=== PATIENT | male | born 1950 | race Caucasian/White ===

== ENCOUNTER 2020-03-12 22:29 | Emergency (ER) | payer MEDICARE, OTHER, SELFPAY ==
--- NOTE | 2020-03-12 23:10 | USR_ITS ---
PROCEDURE INFORMATION: Exam: US Abdomen, Limited; Right Upper Quadrant Exam date and time: 03/12/2020 11:42 PM Age: 69 years old Clinical indication: Abdominal pain; Acute; Additional info: Ruq pain, sudden onset TECHNIQUE: Imaging protocol: US abdomen. Real time ultrasound with image documentation. Limited exam focused on the right upper quadrant. COMPARISON: No relevant prior studies available. FINDINGS: Liver: Somewhat increased echogenicity of the liver may indicate fatty infiltration. No visible focal hepatic abnormality. Gallbladder: Gallbladder is upper normal/mildly prominent in size. Transverse diameter about 4 cm. Length of the gallbladder about 12 cm. Moderate amount of apparent biliary sludge within the gallbladder. No definite cholelithiasis/shadowing gallstones. No gallbladder wall thickening. Possibly a minimal amount of pericholecystic fluid, difficult to be certain. Technologist states patient was tender over the gallbladder region during scanning. Common bile duct: No biliary dilation, common duct measures 4.9 mm. Pancreas: Visible pancreas unremarkable. Much of the pancreas is obscured by bowel gas. Right kidney: Images of the right kidney show no hydronephrosis. US/US gall bladder [id number] IMPRESSION: 1. Borderline/mildly prominent gallbladder. 2. Moderate amount of biliary sludge within the gallbladder. 3. No definite cholelithiasis. 4. No biliary tree dilation. 5. Other findings discussed above.
[2020-03-12 23:11] VITALS: BP 132/87; PULSE 87; RESP 16; TEMP 36.9; O2SAT 99; BMI 29.2
--- NOTE | 2020-03-12 23:12 | W.ED.ABDPA2 ---
HPI - Abdominal Pain General: Chief Complaint: Nausea/Vomiting/Diarrhea Stated Complaint: ABDOMINAL PAIN Time Seen by Provider: 03/12/20 23:07 History of Present Illness: HPI narrative: Complains of severe onset abdominal pain earlier this evening. He had been fine up until eating and then about an hour after eating some fried food he developed severe upper right quadrant abdominal pain. Has been vomiting. Denies any shortness of breath chest pain or chest pressure. Carole history gallbladder problems. MD elicited complaint: abdominal pain Pertinent past history: other (Hypertension) Onset (ago): hour(s) Pain Consistency: constant Location: RUQ Severity: severe Pain scale (0-10): 8 Quality: aching Radiation: RUQ and epigastric Exacerbating factors: nothing Relieving factors: nothing Associated Symptoms: Reports belching and vomiting; Denies chills and fever(s) Review of Systems Const: Denies: fever(s), chills or body aches Eyes: Denies: change in vision or blurry vision ENMT: Denies: throat pain or nasal congestion Card: Denies: chest pain or dyspnea on exertion Resp: Denies: dyspnea, productive cough or non-productive cough GI: Reports: abdominal pain, vomiting and belching : Denies: difficulty urinating Musc: Denies: extremity pain Skin/Breast: Denies: rash Neuro: Denies: headache(s) Psych: Denies: anxiety or depression Richie/Lymph: Denies: easy bruising PFSH ED PFSH: Family History (Updated 03/17/20 @ 15:37 by Kayla Lam RN) Denies family history of Anesthesia complication Bleeding disorder Social History (Updated 03/17/20 @ 15:37 by Kayla Lam RN) Smoking and tobacco status: never smoked Physical Exam Const: COMMON NORMALS: no acute distress, average body habitus and patient oriented x3 HENMT: COMMON NORMALS: normocephalic HEAD & SCALP: normal to inspection and normocephalic FACE & SINUS: normal facial exam Eye: COMMON NORMALS: conjunctivae normal GENERAL EYE: appearance normal, both eyes and all related structures CONJUNCTIVA: Yes conjunctivae normal Neck/C-Spine: COMMON NORMALS: no JVD Chest: COMMONS NORMALS: normal inspection of the chest Resp: COMMON NORMALS: normal respiratory effort and clear to auscultation bilaterally AUSCULTATION: clear to auscultation bilaterally Cardio: COMMON NORMALS: no JVD, regular rate and regular rhythm RATE: regular rate RHYTHM: regular rhythm GI: COMMON NORMALS: Normal to inspection, nondistended, normoactive bowel sounds present PALPATION: Yes Tenderness to palpation present (GI) Details: RUQ Extremity: COMMON NORMALS: normal to inspection and full ROM Neuro: COMMON NORMALS: patient oriented x3 Course Vital Signs: Vital signs: Vital Signs Temperature 98.5 F 03/12/20 23:11 Pulse Rate 86 03/13/20 02:38 Respiratory Rate 16 03/13/20 01:44 Blood Pressure 152/82 03/13/20 02:38 Pulse Oximetry 93 03/13/20 02:38 MDM - Abdominal Pain MDM Narrative: Medical decision making narrative: Discussed all findings with Dr. Chou. Patient will make a choice whether he wants follow-up Dr. Barrientos Lab Data: Labs: Lab Results 03/12/20 03/12/20 03/12/20 Range/Units 23:33 23:33 23:33 WBC 10.3 H (4.0-10.0) 10^3/ uL RBC 4.97 (4.1-5.3) 10^6/u L Hgb 15.6 (11.7-16.6) g/dL Hct 46.4 (42.0-52.0) % MCV 93.4 (80-94) fL MCH 31.4 (28.0-34.0) pg MCHC 33.6 (30.0-36.0) g/dL RDW 12.1 (12.1-15.1) % Plt Count 225 (130-400) 10^3/c mm MPV 9.6 (7.4-10.4) fL Neut % (Auto) 61.0 % Lymph % (Auto) 27.5 % [place] % (Auto) 7.4 % Eos % (Auto) 2.4 % Baso % (Auto) 0.9 % Neut # (Auto) 6.29 (1.8-7.7) 10^3/u L Lymph # (Auto) 2.8 (0.8-4.8) 10^3/u L [place] # (Auto) 0.8 (0.2-0.9) 10^3/u L Eos # (Auto) 0.3 (0.0-0.8) 10^3/u L Baso # (Auto) 0.1 (0.0-0.1) 10^3/u L Nucleated RBC % (a uto) 0 % Nucleated RBCs # 0.0 /100WBC Sodium Cancelled 139 Potassium Cancelled 4.3 Chloride Cancelled 101 Carbon Dioxide Cancelled 28 Anion Gap Cancelled 14.3 BUN Cancelled 19 Creatinine Cancelled 1.1 GFR Calculation Cancelled 66.8 L Glucose Cancelled 175 H Calculated Osmolal ity Cancelled 295 Calcium Cancelled 9.2 Total Bilirubin Cancelled 0.3 AST Cancelled 29 ALT Cancelled 45 H Alkaline Phosphata se Cancelled 65 Total Protein Cancelled 7.2 Albumin Cancelled 4.6 Globulin Cancelled 2.6 Lipase Cancelled 31 Urine Color (Yellow) Urine Appearance (CLEAR) Urine pH (5-7) Ur Specific Gravit y (1.005-1.030) Urine Protein (Negative) Urine Glucose (UA) (Normal) Urine Ketones (Negative) Urine Blood (Negative) Urine Nitrate (Negative) Urine Bilirubin (Negative) Urine Urobilinogen (Negative) mg/dL Ur Leukocyte Marce ase (Negative) 03/13/20 Range/Units 01:25 WBC (4.0-10.0) 10^3/ uL RBC (4.1-5.3) 10^6/u L Hgb (11.7-16.6) g/dL Hct (42.0-52.0) % MCV (80-94) fL MCH (28.0-34.0) pg MCHC (30.0-36.0) g/dL RDW (12.1-15.1) % Plt Count (130-400) 10^3/c mm MPV (7.4-10.4) fL Neut % (Auto) % Lymph % (Auto) % [place] % (Auto) % Eos % (Auto) % Baso % (Auto) % Neut # (Auto) (1.8-7.7) 10^3/u L Lymph # (Auto) (0.8-4.8) 10^3/u L [place] # (Auto) (0.2-0.9) 10^3/u L Eos # (Auto) (0.0-0.8) 10^3/u L Baso # (Auto) (0.0-0.1) 10^3/u L Nucleated RBC % (a uto) % Nucleated RBCs # /100WBC Sodium Potassium Chloride Carbon Dioxide Anion Gap BUN Creatinine GFR Calculation Glucose Calculated Osmolal ity Calcium Total Bilirubin AST ALT Alkaline Phosphata se Total Protein Albumin Globulin Lipase Urine Color Yellow (Yellow) Urine Appearance Clear (CLEAR) Urine pH 5 (5-7) Ur Specific Gravit y 1.025 (1.005-1.030) Urine Protein Neg (Negative) Urine Glucose (UA) Norm (Normal) Urine Ketones Negative (Negative) Urine Blood Neg (Negative) Urine Nitrate Negative (Negative) Urine Bilirubin Neg (Negative) Urine Urobilinogen Norm (Negative) mg/dL Ur Leukocyte Marce ase Negative (Negative) Discharge Plan Discharge Patient Disposition: Home Clinical Impression: Abdominal pain Qualifiers: Abdominal location: right upper quadrant Qualified Code(s): R10.11 - Right upper quadrant pain Condition: Stable Prescriptions: No Action oxycodone-acetaminophen 5-325 mg tablet 1 tab PO Q6H PRN (Reason: pain) Qty: 14 RF: 0 dicyclomine 20 mg tablet 20 mg PO TID Qty: 20 RF: 0 ondansetron HCl 4 mg tablet 4 mg PO Q8H PRN (Reason: nausea and vomiting) Qty: 10 RF: 0 Discharge Orders: Discharge Order (Routine); Ordered 03/13/20 Ordered By: Claude Ralph Referrals: Amando Harry DO [Family Provider] - Discharge Diet: Advance as tolerated and Low Fat Discharge Activity: Increase activity as tolerated Patient Instructions: Abdominal Pain (ED) Activity Restrictions/Additional Instructions: Follow-up with your family medical doctor/provider. Low-fat diet. Discussed with your family medical provider if you would like to have an appointment with the surgeon to discuss gallbladder. Would recommend doing a laxative or some magnesium citrate to help clean the bowels out. Increase fiber in diet. Discharge Date/Time: 03/13/20 02:40 Coding Level of Care Code ED Data Center Architect for Chg Fwd Exam Comprehensive
[2020-03-12 23:29] VITALS: BP 181/96; PULSE 85; O2SAT 97
[2020-03-12 23:35] VITALS: RESP 16
[2020-03-12] MEDS: morphine 4 mg/mL SDV 1 mL IVP (23:35)
[2020-03-12] MEDS: ondansetron 2 mg/ML SDV 2 mL 4 MG IVP (23:39)
[2020-03-12] MEDS: sodium chloride 0.9% 1,000 ML 999 ML IV (23:43)
[2020-03-12 23:44] LABS: Basophils # 0.1 10^3/uL (0.0-0.1); Basophils % 0.9 %; Eosinophils # 0.3 10^3/uL (0.0-0.8); Eosinophils % 2.4 %; Hematocrit 46.4 % (42.0-52.0); Hemoglobin 15.6 g/dL (11.7-16.6); Lymphocytes # 2.8 10^3/uL (0.8-4.8); Lymphocytes % 27.5 %; Mean Corpuscular HGB Conc 33.6 g/dL (30.0-36.0); Mean Corpuscular Hemoglobin 31.4 pg (28.0-34.0); Mean Corpuscular Volume 93.4 fL (80-94); Mean Platelet Volume 9.6 fL (7.4-10.4); Monocytes # 0.8 10^3/uL (0.2-0.9); Monocytes % 7.4 %; Neutrophils # 6.29 10^3/uL (1.8-7.7); Nucleated Red Blood Cells % 0 %; Platelet Count 225 10^3/cmm (130-400); Red Blood Count 4.97 10^6/uL (4.1-5.3); Red Cell Distribution Width 12.1 % (12.1-15.1); White Blood Count 10.3 10^3/uL (4.0-10.0)
[2020-03-13 00:21] VITALS: RESP 18
[2020-03-13] MEDS: morphine 4 mg/mL SDV 1 mL IVP (00:21)
[2020-03-13 00:51] LABS: Alanine Aminotransferase 45 U/L (0-41); Albumin Level 4.6 g/dL (3.5-5.2); Alkaline Phosphatase 65 IU/L (40-130); Anion Gap 14.3 (5-19); Aspartate Amino Transferase 29 U/L (0-40); Blood Urea Nitrogen 19 mg/dL (8-23); Calcium 9.2 mg/dL (8.5-10.5); Carbon Dioxide 28 mmol/L (22-29); Chloride 101 mmol/L (98-107); Globulin 2.6 g/dL (1.3-4.6); Glomerular Filtration Rate 66.8 mL/min (90-130); Glucose 175 mg/dL (65-115); Lipase 31 U/L (13-60); Osmolality Calculated 295 mOsm/kg (285-295); Potassium 4.3 mmol/L (3.5-5.1); Sodium 139 mmol/L (136-145); Total Bilirubin 0.3 mg/dL (0.15-1.2); Total Protein 7.2 g/dL (6.6-8.7)
--- NOTE | 2020-03-13 00:55 | XR_ITS ---
WS: [id number] KUB, portable supine, 03/13/2020 Clinical Data: abd pain Comparison: None. Findings: No abnormal intraabdominal masses or calcifications are seen. There is no dilatated small bowel or ev idence of obstruction. The small bowel loops show a moderate amount of air without dilatation. Moderate fecal material is pr esent. XR/XR KUB portable [id number] Impression: Moderate generalized ileus.
--- NOTE | 2020-03-13 01:07 | CTR_ITS ---
PROCEDURE INFORMATION: Exam: CT Abdomen And Pelvis With Contrast Exam date and time: 03/13/2020 1:13 AM Age: 69 years old Clinical indication: Abdominal pain; Generalized; Prior surgery; Surgery type: Hernia; Additional info: Ruq pain TECHNIQUE: Imaging protocol: Computed tomography of the abdomen and pelvis with intravenous contrast. Radiation optimization: All CT scans at this facility use at least one of these dose optimization techniques: automated exposure control; mA and/or kV adjustment per patient size (includes targeted exams where dose is matched to clinical indication); or iterative reconstruction. Contrast material: OMNI 300; Contrast volume: 95 ml; Contrast route: INTRAVENOUS (IV); COMPARISON: US gall bladder [id number] 03/12/2020 11:35 PM RADIATION DOSE METRICS: Total DLP (mGy-cm): 1144.93 FINDINGS: Lungs: The lung bases are clear. Mediastinal space: Small hiatal hernia. Liver: There is fatty infiltration of the liver. The liver appears somewhat enlarged, with right lobe length of 21-22 vessel to cm. No definite/significant focal hepatic abnormality. Gallbladder and bile ducts: The gallbladder appears upper normal/mildly prominent in size, transverse diameter up to about 3.9 cm. No visible gallstones by CT. No definite pericholecystic fluid or inflammation. Borderline/mild extra hepatic biliary tree prominence, with common duct measuring up to about 6 mm. No significant intrahepatic biliary dilation. No visible common duct stone by CT. Significance uncertain. Correlation with laboratory/bilirubin levels may be helpful to determine if there is any significant biliary obstruction. Pancreas: Unremarkable. Spleen: Unremarkable. Adrenals: Unremarkable. Kidneys and ureters: Couple of likely benign subcentimeter cysts in the kidneys, too small to accurately characterize by CT. These are peripelvic in location on left. Small right lower pole intrarenal calculus. No hydronephrosis of either kidney. No visible ureteral calculus. No perinephric fluid. Stomach and bowel: There is diverticulosis of the colon, without CT evidence of diverticulitis. Appendix: The appendix is visualized and appears normal. Intraperitoneal space: No free air, ascites, or bowel distention. Vasculature: Moderate atherosclerotic disease in the lower abdominal aorta and proximal iliac arteries. Some ectasia of the abdominal aorta, with maximum AP diameter 2.3 cm. Lymph nodes: No retroperitoneal adenopathy. Urinary bladder: Mild diffuse urinary bladder wall thickening. This may be related to the prostate enlargement. While nonspecific, this could also indicate evidence for cystitis. Please correlate clinically. Reproductive: Prostate enlargement with transverse diameter of 5.8 cm. Correlation with PSA levels may be useful to help exclude prostate malignancy. Bones/joints: No significant acute finding. Soft tissues: No significant acute finding. CT/CT abdomen pelvis w con* [id number] IMPRESSION: 1. Gallbladder is upper normal/mildly prominent in size, no visible gallstones by CT. 2. Borderline/mild extra hepatic biliary tree prominence, see above discussion. 3. Normal appendix. 4. Small right intrarenal calculus. No hydronephrosis or visible ureteral calculus. 5. Prostate enlargement and mild urinary bladder wall thickening, see above. 6. Other findings discussed above. COMMENTS: Consistent with the [employer]'s Incidental Findings Committee white paper (J Am Sae Radiol 2018): Any incidental renal lesion less than 1 cm or classified as too small to characterize, or any incidental cystic renal lesion characterized as simple-appearing, is likely benign. No follow-up imaging is recommended for these lesions per consensus recommendations based on imaging criteria. Radiation Dose CTDIVOL = (mGy): DLP = 1144.93 (mGy-cm)
[2020-03-13] MEDS: iohexol 300 mg/mL 100 mL Btl IV (01:28)
[2020-03-13 01:38] VITALS: RESP 16
[2020-03-13] MEDS: meperidine 50 mg/mL INJ IVP (01:38)
[2020-03-13 01:39] LABS: Add Urine Microscopic? NO
[2020-03-13 01:44] VITALS: BP 167/80; PULSE 88; RESP 16; O2SAT 97
[2020-03-13 01:55] LABS: Bilirubin Urine Neg (Negative); Blood Urine Neg (Negative); Glucose Urine UA Norm (Normal); Ketones Urine Negative (Negative); Leukocyte Esterase Urine Negative (Negative); Nitrate Urine Negative (Negative); Protein Urine Neg (Negative); Specific Gravity, Urine 1.025 (1.005-1.030); Urine Appearance Clear (CLEAR); Urine Color Yellow (Yellow); Urobilinogen Urine Norm (Negative); pH Urine 5 (5-7)
[2020-03-13] MEDS: HYDROcodone-acetaminophen 5-325 mg Tablet 2 TAB PO (02:35)
[2020-03-13 02:38] VITALS: BP 152/82; PULSE 86; O2SAT 93
== END 2020-03-13 02:40 | disposition home or self-care (01) ==
PROVIDERS: Emergency Medicine; Emergency Provider Nurse Practitioner Family; Family Provider Family Medicine
DX: R10.11 Right upper quadrant pain (principal)
CPT/HCPCS: 12345; 74018; 74177; 76705; 80053; 81003; 83690; 85025; 96361; 96374; 96375; 96376; 99283; J2175; J2270; J2405; J7030; Q9967

== ENCOUNTER 2020-03-14 16:07 | Emergency (ER) | payer MEDICARE, OTHER, SELFPAY ==
[2020-03-14] VITALS (7 sets, daily range): BP systolic 124–215; BP diastolic 60–110; PULSE 74–100; RESP 16–20; TEMP 36.5–36.7; O2SAT 95–97; BMI 29.9
--- NOTE | 2020-03-14 18:26 | ED_ITS ---
HPI - Abdominal Pain General: Chief Complaint: Abdominal Pain Stated Complaint: lower abdominal pain Time Seen by Provider: 03/14/20 18:20 History of Present Illness: HPI narrative: 69-year-old male comes in with abdominal pain. Patient was diagnosed with gallbladder disease 2 days ago and was prescribed 2 hydrocodone tablets at that time. Patient continues to have some abdominal pain. He has been able unable to control at home. Patient appears in mild to moderate pain. Patient appears well otherwise. Review of Systems General: Reports: 10 or more systems reviewed and unremarkable except in HPI and below GI: Reports: abdominal pain Physical Exam Const: COMMON NORMALS: no acute distress and patient oriented x3 GENERAL APPEARANCE: cooperative HENMT: COMMON NORMALS: normocephalic and Normal external nose present HEAD & SCALP: normal to inspection and normocephalic NOSE: Normal external nose present MOUTH: Normal oral and palatal mucosa present THROAT: posterior oropharynx normal Eye: GENERAL EYE: appearance normal, both eyes and all related structures Neck/C-Spine: COMMON NORMALS: full ROM Lymph: LYMPHATIC: no lymphadenopathy noted Chest: COMMONS NORMALS: normal inspection of the chest Resp: COMMON NORMALS: normal respiratory effort EFFORT & INSPECTION: Yes able to speak in complete sentences Cardio: COMMON NORMALS: regular rate and regular rhythm RATE: regular rate RHYTHM: regular rhythm GI: COMMON NORMALS: Soft to palpation PALPATION: Yes Soft to palpation and Yes Tenderness to palpation present (GI) : COMMON NORMALS: Yes no CVA tenderness BLADDER/KIDNEY EXAM: Yes no CVA tenderness Back/Pelvis: COMMON NORMALS: no CVA tenderness and thoracic and lumbar spine normal to inspection Extremity: COMMON NORMALS: normal to inspection Neuro: COMMON NORMALS: patient oriented x3 and moves all extremities Psych: COMMON NORMALS: mental status grossly normal and cooperative Skin: COMMON NORMALS: no rashes or lesions noted GENERAL SKIN EXAM: no rashes or lesions noted Course ED course: 2152, Dr. Stewart consulted for oxycodone and acetaminophen prescription. He agreed to plan. Vital Signs: Vital signs: Vital Signs Temperature 97.7 F 03/14/20 16:27 Pulse Rate 74 03/14/20 21:00 Respiratory Rate 16 03/14/20 21:00 Blood Pressure 124/60 03/14/20 21:00 Pulse Oximetry 96 03/14/20 21:00 MDM - Abdominal Pain MDM Narrative: Medical decision making narrative: Patient comes in for exacerbation of gallbladder pain. Patient reports right upper quadrant pain. Patient was diagnosed with gallbladder sludge 2 days ago. Patient does not think he could make it through the weekend and came in for further evaluation. On exam patient appears mildly unwell. Patient appears in moderate to severe pain. Patient was given 50 mg of Toradol IV 1 mg of Dilaudid and 4 mg of Zofran. Patient had good relief of pain at that time he was able to tolerate ultrasound and further evaluation. Ultrasound noted no significant change from previous exam. Differential diagnosis included but not limited to cholecystitis, cholelithiasis, gallbladder colic. No indication for gallbladder obstruction at this time and patient had total relief of pain. Recommended trial of dicyclomine, Percocet, and Zofran for control of gallbladder colic. Patient agreed to trial and will see surgeon on Tuesday as he has scheduled. We will place case management to ensure surgical follow-up. Encourage light diet and return to the ER for worsening symptoms or new concerns. Lab Data: Labs: Lab Results 03/14/20 03/14/20 03/14/20 Range/Units 18:43 18:43 18:48 WBC 12.4 H (4.0-10.0) 10^3/ uL RBC 5.18 (4.1-5.3) 10^6/u L Hgb 16.3 (11.7-16.6) g/dL Hct 48.8 (42.0-52.0) % MCV 94.2 H (80-94) fL MCH 31.5 (28.0-34.0) pg MCHC 33.4 (30.0-36.0) g/dL RDW 12.2 (12.1-15.1) % Plt Count 232 (130-400) 10^3/c mm MPV 9.3 (7.4-10.4) fL Neut % (Auto) 81.5 % Lymph % (Auto) 8.9 % [place] % (Auto) 8.9 % Eos % (Auto) 0.2 % Baso % (Auto) 0.2 % Neut # (Auto) 10.12 H (1.8-7.7) 10^3/u L Lymph # (Auto) 1.1 (0.8-4.8) 10^3/u L [place] # (Auto) 1.1 H (0.2-0.9) 10^3/u L Eos # (Auto) 0.0 (0.0-0.8) 10^3/u L Baso # (Auto) 0.0 (0.0-0.1) 10^3/u L Nucleated RBC % (a uto) 0 % Nucleated RBCs # 0.0 /100WBC Sodium 134 L (136-145) mmol/L Potassium 4.2 (3.5-5.1) mmol/L Chloride 93 L (98-107) mmol/L Carbon Dioxide 30 H (22-29) mmol/L Anion Gap 15.2 (5-19) BUN 11 (8-23) mg/dL Creatinine 1.0 (0.7-1.2) mg/dL GFR Calculation 74.5 L (90-130) mL/min Glucose 144 H (65-115) mg/dL Calculated Osmolal ity 280 L (285-295) mOsm/k g Calcium 9.5 (8.5-10.5) mg/dL Total Bilirubin 0.9 (0.15-1.2) mg/dL AST 202 H (0-40) U/L ALT 468 H (0-41) U/L Alkaline Phosphata se 122 (40-130) IU/L Total Protein 8.1 (6.6-8.7) g/dL Albumin 4.8 (3.5-5.2) g/dL Globulin 3.3 (1.3-4.6) g/dL Lipase 21 (13-60) U/L Urine Color Yellow (Yellow) Urine Appearance Clear (CLEAR) Urine pH 7 (5-7) Ur Specific Gravit y 1.015 (1.005-1.030) Urine Protein Neg (Negative) Urine Glucose (UA) Norm (Normal) Urine Ketones Negative (Negative) Urine Blood Neg (Negative) Urine Nitrate Negative (Negative) Urine Bilirubin Neg (Negative) Urine Urobilinogen Norm (Negative) mg/dL Ur Leukocyte Marce ase Negative (Negative) Discharge Plan Discharge Patient Disposition: Home Clinical Impression: Gallbladder colic Condition: Stable Prescriptions: New oxycodone-acetaminophen 5-325 mg tablet 1 tab PO Q6H PRN (Reason: pain) Qty: 14 RF: 0 dicyclomine 20 mg tablet 20 mg PO TID Qty: 20 RF: 0 ondansetron HCl 4 mg tablet 4 mg PO Q8H PRN (Reason: nausea and vomiting) Qty: 10 RF: 0 Discharge Orders: Discharge Order (Routine); Ordered 03/14/20 Ordered By: Chris Pearson Discharge Diet: Usual diet Discharge Activity: Increase activity as tolerated Patient Instructions: Abdominal Pain (ED) Activity Restrictions/Additional Instructions: Drink plenty of water. Take medications as directed for pain and nausea. Use dicyclomine to control gallbladder spasms. Avoid greasy or fatty foods. Follow-up with surgeon on Tuesday. Return to the emergency department for fever, or uncontrolled pain. Coding Level of Care Code ED Masonry Contractor Administrator for Chg Fwd Exam Comprehensive
[2020-03-14 19:00] LABS: Add Urine Microscopic? NO
[2020-03-14 19:04] LABS: Bilirubin Urine Neg (Negative); Blood Urine Neg (Negative); Glucose Urine UA Norm (Normal); Ketones Urine Negative (Negative); Leukocyte Esterase Urine Negative (Negative); Nitrate Urine Negative (Negative); Protein Urine Neg (Negative); Specific Gravity, Urine 1.015 (1.005-1.030); Urine Appearance Clear (CLEAR); Urine Color Yellow (Yellow); Urobilinogen Urine Norm (Negative); pH Urine 7 (5-7)
[2020-03-14 19:07] LABS: Basophils % 0.2 %; Eosinophils % 0.2 %; Hematocrit 48.8 % (42.0-52.0); Hemoglobin 16.3 g/dL (11.7-16.6); Lymphocytes # 1.1 10^3/uL (0.8-4.8); Lymphocytes % 8.9 %; Mean Corpuscular HGB Conc 33.4 g/dL (30.0-36.0); Mean Corpuscular Hemoglobin 31.5 pg (28.0-34.0); Mean Corpuscular Volume 94.2 fL (80-94); Mean Platelet Volume 9.3 fL (7.4-10.4); Monocytes # 1.1 10^3/uL (0.2-0.9); Monocytes % 8.9 %; Neutrophils # 10.12 10^3/uL (1.8-7.7); Neutrophils % 81.5 %; Nucleated Red Blood Cells % 0 %; Platelet Count 232 10^3/cmm (130-400); Red Blood Count 5.18 10^6/uL (4.1-5.3); Red Cell Distribution Width 12.2 % (12.1-15.1); White Blood Count 12.4 10^3/uL (4.0-10.0)
[2020-03-14] MEDS: sodium chloride 0.9% 1,000 ML 999 ML IV (19:12)
[2020-03-14] MEDS: ondansetron 2 mg/ML SDV 2 mL 4 MG IVP (19:13)
[2020-03-14] MEDS: ketorolac 30 mg/mL INJ IVP (19:15)
[2020-03-14] MEDS: HYDROmorphone 1 mg/mL INJ 1 mL IVP (19:18)
[2020-03-14 19:29] LABS: Alanine Aminotransferase 468 U/L (0-41); Albumin Level 4.8 g/dL (3.5-5.2); Alkaline Phosphatase 122 IU/L (40-130); Anion Gap 15.2 (5-19); Aspartate Amino Transferase 202 U/L (0-40); Blood Urea Nitrogen 11 mg/dL (8-23); Calcium 9.5 mg/dL (8.5-10.5); Carbon Dioxide 30 mmol/L (22-29); Chloride 93 mmol/L (98-107); Globulin 3.3 g/dL (1.3-4.6); Glomerular Filtration Rate 74.5 mL/min (90-130); Glucose 144 mg/dL (65-115); Lipase 21 U/L (13-60); Osmolality Calculated 280 mOsm/kg (285-295); Potassium 4.2 mmol/L (3.5-5.1); Sodium 134 mmol/L (136-145); Total Bilirubin 0.9 mg/dL (0.15-1.2); Total Protein 8.1 g/dL (6.6-8.7)
--- NOTE | 2020-03-14 20:03 | USR_ITS ---
PROCEDURE INFORMATION: Exam: US Abdomen, Limited; Right Upper Quadrant Exam date and time: 03/14/2020 8:04 PM Age: 69 years old Clinical indication: Abdominal pain; Prior surgery; Surgery type: Hernias; Additional info: Increased abd pain TECHNIQUE: Imaging protocol: US abdomen. Real time ultrasound with image documentation. Limited exam focused on the right upper quadrant. COMPARISON: US gall bladder [id number] 03/12/2020 11:35 PM FINDINGS: Limitations: The study is limited by patient body habitus. Liver: Hepatomegaly noted. Liver measures 19 cm in length. Hepatic echotexture is coarsened, consistent with hepatic steatosis. There is focal sparing seen in the area of the gallbladder fossa. Gallbladder: No gallstones are demonstrated in the gallbladder. Gallbladder wall is thickened, measuring 4.5 mm. This may be a sympathetic reaction related to adjacent hepatic pathology. No definite pericholecystic fluid. Common bile duct: No biliary dilatation. The common duct measures 5.8 mm in diameter. Pancreas: Visualized pancreas is unremarkable. Right kidney: Right kidney measures 11.5 cm in length. Click normal kidney US/US gall bladder [id number] IMPRESSION: 1. The study is limited by patient body habitus. 2. Hepatomegaly and hepatic steatosis. 3. No gallstones are demonstrated in the gallbladder. Gallbladder wall is thickened, measuring 4.5 mm. This may be a sympathetic reaction related to adjacent hepatic pathology. No definite pericholecystic fluid demonstrated.
[2020-03-14] MEDS: dicyclomine 10 mg Capsule 20 MG PO (21:49)
[2020-03-14] MEDS: oxyCODONE-APAP 10-325 mg Tablet 1 TAB PO (21:50)
--- NOTE | 2020-03-17 12:28 | DCPLANNER ---
maintenance department manager had message to schedule a follow up appointment for patient with [facility]. maintenance department manager called [facility], spoke with Victoria. A follow up appointment is scheduled for Tuesday, March 17, 2020 at 3:15 with . maintenance department manager will confirm that patient attended appointment.
--- NOTE | 2020-03-20 15:20 | DCPLANNER ---
Patient had a follow up appointment scheduled for 03.17.20 with [facility] - patient did attend appointment.
== END 2020-03-14 22:03 | disposition home or self-care (01) ==
PROVIDERS: Emergency Medicine; Emergency Provider Nurse Practitioner Family
DX: K80.20 Calculus of gallbladder without cholecystitis without obstruction (principal)
CPT/HCPCS: 12345; 36415; 76705; 80053; 81003; 83690; 85025; 96361; 96374; 96375; 99283; J1170; J1885; J2405; J7030

== ENCOUNTER 2020-03-27 07:59 | Outpatient (CLI) | payer MEDICARE, OTHER, SELFPAY ==
--- NOTE | 2020-03-27 08:00 | NM_ITS ---
WS: [id number] NUCLEAR MEDICINE HIDA SCAN CLINICAL INFORMATION: GALLBLADDER COLIC TECHNIQUE: Following intravenous administration of 8.0 mCi of technetium 99m mebrofenin, images of th e abdomen were obtained over the course of 120 minutes. COMPARISON: None. FINDINGS: Normal hepatic uptake at 5 minutes. Hepatomegaly. Normal hepatic excretion. Gallbladder is not visual ized by 2 hours. Normal common bile duct and small bowel activity. No evidence of choledocholithiasis . Ejection fraction was not performed due to nonvisualization of the gallbladder. NM/NM hepatobiliary wo phar [id number] IMPRESSION: 1. Nonvisualization of the gallbladder by 120 minutes suspicious for cholecyst itis with cystic duct obstruction 2. Common bile duct activity and small bowel activity visualized. No evidence of choledocholithiasis.
--- NOTE | 2020-03-27 11:00 | MR_ITS ---
WS: [id number] MRI/MRCP OF THE ABDOMEN WITHOUT GADOLINIUM ENHANCEMENT TECHNIQUE: Thin and thick slab MRCP, Axial T2, Coronal MRCP, Axial Dual Echo, and Axial 2-D Fiesta imaging was obtained. Coronal 2-D Fiesta imaging. CLINICAL INFORMATION: GALLBLADDER COLIC COMPARISON: Ultrasound March 14, [address]. Recent [address] abdomen pelvis and HIDA scan FINDINGS: Diffuse gallbladder wall thickening measuring approximately 5 mm with cholelithiasis at the gallbladd er neck. Narrowing of the adjacent cystic duct. Gallbladder calculus measures approximately 1.4 cm. C ommon bile duct is normal. No evidence of choledocholithiasis. Common bile duct tapers to the pancreatic head.Hepatomegaly. Diffuse infiltration of the liver. Norm al pancreatic duct. No evidence of pancreatic head mass. Normal caliber upper abdominal aorta. Adrenal glands are normal. Small right renal cysts. No hydronep hrosis. Normal spleen. Normal portal vein and splenic vein. MR/MR MRCP [id number] Impression: 1. Diffuse gallbladder wall thickening with gallbladder wall edema suspicious for acute cholecystitis. 2. Gallbladder calculus at the gallbladder neck with narrowing of the adjacent cystic duct at the level of the gallbladder. 3. Normal common bile duct. No evidence of choledocholithiasis. 4. Normal pancreatic duct duct. No evidence of pancreatic mass. 5. Hepatomegaly with diffuse fatty infiltration of the liver.
== END 2020-03-27 08:00 | disposition home or self-care (01) ==
LOC: RAD 08:04
PROVIDERS: PCP Family Medicine; Visit Provider Surgery
DX: K80.20 Calculus of gallbladder without cholecystitis without obstruction (principal); R16.0 Hepatomegaly, not elsewhere classified; K76.0 Fatty (change of) liver, not elsewhere classified
CPT/HCPCS: 74181; 78226; A9537

== ENCOUNTER → 2020-04-16 11:03 | Outpatient (BNVA) | payer MEDICARE, OTHER, SELFPAY | PROVIDERS: PCP Family Medicine; Visit Provider Surgery | DX: K80.20 Calculus of gallbladder without cholecystitis without obstruction (principal); Z20.828 Contact with and (suspected) exposure to other viral communicable diseases | CPT/HCPCS: 87635 ==

== ENCOUNTER 2020-04-21 06:18 | Day surgery (SDC) | payer MEDICARE, OTHER, SELFPAY ==
[2020-04-16 13:05] VITALS: BMI 30.1
[2020-04-21] VITALS (11 sets, daily range): BP systolic 102–158; BP diastolic 64–97; PULSE 74–95; RESP 10–24; TEMP 36.1–36.3; O2SAT 93–98
--- NOTE | 2020-04-21 06:24 | W.PM.OPSUD ---
Surgery/Procedure H&P Update DATE OF PROCEDURE: April 21, 2020 DATE H&P PERFORMED: 04/10/20 H&P UPDATE INFORMATION: I have reviewed H&P completed within last 30 days, I have examined patient prior to procedure and No changes to prior documentation (patient reports he dropped his weight down to 200 pounds from 213 per his home scale.) PREOP DIAGNOSIS: Symptomatic cholelithiasis PRIMARY INDICATION FOR PROCEDURE: The same PLANNED PROCEDURE: Operation Date: 04/21/20 07:00 Proposed Procedures p Laparoscopic Cholecystectomy 50579 k80.20(Not Applicable) - Bright Barrientos MD
[2020-04-21] MEDS: sodium chloride 0.9% 1,000 ML 30 ML IV (06:50)
--- NOTE | 2020-04-21 06:59 | ANES.PREANE2 ---
Pre-Anesthetic Assessment Pre-Anesthetic Assessment: Height/Weight: Height 1.8 m Weight 95.254 kg Temp Pulse Resp BP Pulse Ox 97.3 F L 74 16 102/70 98 04/21/20 06:30 04/21/20 06:30 04/21/20 06:30 04/21/20 06:30 04/21/20 06:30 Preop Diagnosis: Symptomatic cholelithiasis Proposed Procedure: Operation Date: 04/21/20 07:00 Proposed Procedures p Laparoscopic Cholecystectomy 39450 k80.20(Not Applicable) - Bright Barrientos MD Familial anesthetic complications: None Was Beta Sam taken within 24 hours: N/A Last intake: Intake Last Liquid Date 04/20/20 Last Liquid Time 20:00 Last Solid Date 04/09/20 Social: Social History: No alcohol and No tobacco Exam: Pre-Anes Outpt Exam: alert, oriented x 3, clear to auscultation bilaterally and regular rate & rhythm Airway: Cervical ROM: WNL MP: 1 Dentition: False Additional comments: Full ryan CV/HEM: CV/HEM: HTN Hepatic: Comments: fatty liver Metabolic: Metabolic: Hyperlipidemia Anesthetic Plan: ASA status: 2 Anesthesia: General Risk of > 500 ml blood loss (7ml/kg in children): No Meds/Allergies Current Medications: Current Medications Generic Name Dose Route Start Last Admin Trade Name Freq PRN Reason Stop Dose Admin Sodium Chloride 1,000 mls @ 30 ml s/hr 04/21/20 06:30 04/21/20 06:50 Sodium Chloride 0.9% IV 04/22/20 06:29 30 mls/hr .Q24H SAMREEN Administration PFSH Anesthesia PFSH: Family History Denies family history of Anesthesia complication Bleeding disorder Social History Smoking and tobacco status: never smoked Data Anesthesia Cardiac Studies: No Data to Display
[2020-04-21] MEDS: lidocaine 2% INJ 20 mL INJECTION (07:31)
--- NOTE | 2020-04-21 08:22 | PM.OP ---
Operative Report Date of procedure: April 21, 2020 Pre-op Diagnosis: Symptomatic cholelithiasis Post-op Diagnosis: Acute on top of chronic calculus cholecystitis Moderate hepatomegaly Ventral hernia with preperitoneal fat Procedure Done: Laparoscopic cholecystectomy and primary repair of Ventral hernia Implants: Large piece of Surgicel at the GB fossa Specimens removed/disposition: Gallbladder and contents Ventral hernia content in the form of preperitoneal fat Surgeon: Bright Barrientos Account Retention Representative: Surgical fern Nielsen Medical student Ale Rubio Circulating nurse Anabel Ruiz 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 Plan of care; After thorough history physical examination and reviewing the chart ,I counseled the patient for laparoscopic cholecystectomy possible open, indications risks including but not limited injury to the common bile duct and other viscera.benefits and alternatives all discussed with the patient, and she did agree to proceed. All questions have been answered and all concerns have been addressed to patient's satisfaction. Rationale was carefully and clearly discussed with the patient.Appropriate informed consent have been reviewed and signed. Procedure: Patient was identified in the holding area and taken back to the operative suite, placed in supine position intubated by anesthesia . Time-out was done verifying the patient's name/date of /planned procedure and destination after the procedure, all were in agreement. SCDs confirmed to be functioning, preoperative antibiotics administered per protocol, and beta nikole protocol was confirmed. Patient was appropriately secured to the table, footboard was applied to the OR table, before prep and drape anesthesia was asked to tilt the table back and forth to make sure that the patient is appropriately secured and she was. Prep and drape of the abdomen was done under the usual sterile technique, followed by that supraumbilical skin incision,skin incision was done by a 15 blade knife, patient was found to have a small preperitoneal fat protruding through the hernia defect 2 cm above the umbilicus, that was dissected and sent out for permanent pathology following that the fascial defect(less than an Inch in diameter) was cleared and stay sutures were applied to the fascia and Glass trocar technique was used to enter the abdominal without injuring any abdominal viscera, started by low flow gas insufflation followed by a high flow, started with a 10 mm laparoscope and under direct vision there was no evidence of any injuries, the scope then switched to a 30? ,10 millimeter scope and under direct visualization 5 millimeter trocar was inserted in the epigastric region followed by two 5 mm trocars were inserted in the right upper quadrant that was done after injection of local lidocaine 2% at all incision sites. Gallbladder showed acute calculus cholecystitis with edema &with adhesions Moderate hepatomegaly likely due to fatty liver Patient was then positioned in the head up and tilted to the left Ratcheted forceps were introduced into the lateral most 5mm port and was applied unto the fundus of the gallbladder cephalad and using Bullet forceps the infundibulum of the gallbladder was retracted laterally.yet a 5 mm Tenaculum was used for better Countertraction. Using [place] forceps then L-hook cautery to dissect the peritoneum overlying the Calot's triangle which was then opened medially and laterally until the cystic duct and the cystic artery were skeletonized.Dissection was carried along the body of the gallbladder and after ensuring critical view of safety was identfied. Cystic duct and cystic artery where seen connected to the gallbladder. Clips were applied on the cystic duct towards the common bile duct 1 towards the gallbladder then divided is in sharp scissors, 2 clips were then applied onto the cystic artery and 1 towards the gallbladder and divided by sharp scissors. Couple of traversing vessels were clipped and divided. Dissection was then carried along of the gallbladder from the gallbladder fossa using cautery as well as sharp dissection with heat energy. The gallbladder then was dissected out from the gallbladder fossa totally,inadvertant opening of elida Gall bladder an dspillage of the contenets was noticed , cholecystectomy was then achieved and was placed in an Endo Catch bag and then retrieved from the Glass trocar site under direct visualization using a 5 mm 30? scope through the epigastric trocar, specimen was then passed to the circulating nurse to go for permanent pathology,irrigation and hemostasis was done to the gallbladder fossa after hemostasis was secured, final survey laparoscopy was done that showed no injuries. Suction irrigation was obtained usuing two liters of saline.I elected to put a large piece of Surgicel for compression hemostasis at the gallbladder fossa. The supraumbilical fascial defect was then closed using [id number] #1 PDS sutures using a fascial closure device ;Jaden [place] under direct visualization Gas was allowed to deflate,Trocars were then taken out under direct vision there was no evidence of bleeding Specimen was passed to the circulating nurse for permanent pathology. No drains were placed and the supraumbilical incision(Hernia defect) as well as all trocar sites were closed by 3/0 vicryl follwed by 4-0 Monocryl to approximate the skin edges of the supraumbilical incision, dressing was applied in the form of surgical glue and the patient patient got extubated and was taken to recovery area in a stable condition. Count of sponges,needles and instruments were completed at the end of the procedure I was present for the whole entire procedure.
--- NOTE | 2020-04-21 09:18 | PM.PACU ---
PACU note PACU note: VSS, good pain control Post-Anesthesia Exam: somnolent, arousable Disposition: discharged
[2020-04-21] MEDS: HYDROcodone-acetaminophen 5-325 mg Tablet 1 TAB PO (09:47)
== END 2020-04-21 10:40 | disposition home or self-care (01) ==
PROVIDERS: PCP Family Medicine; Visit Provider Surgery
PROC: 0FT44ZZ Resection of Gallbladder, Percutaneous Endoscopic Approach (ICD-10-PCS; CPT 47562; principal; 2020-04-21 07:00)
DX: K80.10 Calculus of gallbladder with chronic cholecystitis without obstruction (principal); I10 Essential (primary) hypertension; E78.5 Hyperlipidemia, unspecified; K43.9 Ventral hernia without obstruction or gangrene
CPT/HCPCS: 47562; 49560; 12345; 88302; 88304; J0131; J0330; J0690; J1100; J2405; J2704; J3010; J3490; J7030

== ENCOUNTER → 2020-06-20 11:53 | Outpatient (BNVA) | payer MEDICARE, OTHER, SELFPAY | PROVIDERS: PCP Family Medicine; Visit Provider Surgery | DX: Z01.812 Encounter for preprocedural laboratory examination (principal); Z86.010 Personal history of colon polyps | CPT/HCPCS: 87635 ==

== ENCOUNTER 2020-06-25 08:04 | Day surgery (SDC) | payer MEDICARE, OTHER, SELFPAY ==
[2020-06-23 12:33] VITALS: BMI 27.8
[2020-06-25 08:34] VITALS: BP 140/80; PULSE 78; RESP 18; TEMP 36.1; O2SAT 96
[2020-06-25] MEDS: sodium chloride 0.9% 1,000 ML 30 ML IV (08:40)
--- NOTE | 2020-06-25 08:43 | ANES.PREANE2 ---
Pre-Anesthetic Assessment Pre-Anesthetic Assessment: Height/Weight: Height 1.8 m Weight 90.718 kg Temp Pulse Resp BP Pulse Ox 97.0 F L 78 18 140/80 96 06/25/20 08:34 06/25/20 08:34 06/25/20 08:34 06/25/20 08:34 06/25/20 08:34 Preop Diagnosis: screening colonoscopy Proposed Procedure: Operation Date: 06/25/20 09:10 Proposed Procedures p Colonoscopy 94905 Z86.010(Not Applicable) - Bright Barrientos MD Familial anesthetic complications: None Was Beta Sam taken within 24 hours: N/A Last intake: Intake Last Liquid Date 06/24/20 Last Solid Date 06/23/20 Social: Social History: No alcohol and No tobacco Exam: Pre-Anes Outpt Exam: alert, oriented x 3, clear to auscultation bilaterally and regular rate & rhythm Airway: Cervical ROM: WNL MP: 1 Dentition: False Additional comments: full ryan CV/HEM: CV/HEM: HTN Metabolic: Metabolic: Hyperlipidemia Anesthetic Plan: ASA status: 2 Anesthesia: MAC Risk of > 500 ml blood loss (7ml/kg in children): No PFSH Anesthesia PFSH: Medical History Cholelithiasis Hepatic steatosis Family History Denies family history of Anesthesia complication Bleeding disorder Social History Smoking and tobacco status: never smoked Data Anesthesia Cardiac Studies: No Data to Display
--- NOTE | 2020-06-25 08:51 | W.PM.OPSUD ---
Surgery/Procedure H&P Update DATE OF PROCEDURE: June 25, 2020 DATE H&P PERFORMED: 06/05/20 H&P UPDATE INFORMATION: I have reviewed H&P completed within last 30 days, I have examined patient prior to procedure and No changes to prior documentation PREOP DIAGNOSIS: screening colonoscopy PRIMARY INDICATION FOR PROCEDURE: The same PLANNED PROCEDURE: Operation Date: 06/25/20 09:10 Proposed Procedures p Colonoscopy 73732 Z86.010(Not Applicable) - Bright Barrientos MD
[2020-06-25 09:57] VITALS: BP 114/74; PULSE 66; TEMP 36.3; O2SAT 93
[2020-06-25 10:07] VITALS: BP 112/71; PULSE 67; RESP 18; O2SAT 95
--- NOTE | 2020-06-25 10:10 | ANE.PACU2 ---
Inpatient post-anesthesia follow up: Airway intact: Yes Vital signs: Temperature 97.3 F Pulse Rate 67 Respiratory Rate 18 Blood Pressure 112/71 Pulse Oximetry 95 Oxygen Delivery Me thod Room Air Oxygen Flow Rate Fraction of Inspir ed Oxygen Hydration adequate: Yes Nausea and vomiting: No Pain level: 1 Mental status: Baseline
== END 2020-06-25 10:29 | disposition home or self-care (01) ==
PROVIDERS: PCP Family Medicine; Visit Provider Surgery
PROC: 0DJD8ZZ Inspection of Lower Intestinal Tract, Via Natural or Artificial Opening Endoscopic (ICD-10-PCS; CPT 45378; principal; 2020-06-25 09:10)
DX: Z12.11 Encounter for screening for malignant neoplasm of colon (principal); Z86.010 Personal history of colon polyps; K57.30 Diverticulosis of large intestine without perforation or abscess without bleeding; I10 Essential (primary) hypertension; E78.5 Hyperlipidemia, unspecified
CPT/HCPCS: 12345; G0121; J2704; J7030

== ENCOUNTER 2022-05-28 04:31 | Emergency (ER) | payer MEDICARE, OTHER, SELFPAY ==
[2022-05-28 04:35] VITALS: BP 129/75; PULSE 76; RESP 18; TEMP 36.6; O2SAT 98; BMI 30.7
--- NOTE | 2022-05-28 04:40 | XRR_ITS ---
PROCEDURE INFORMATION: Exam: XR Chest Exam date and time: 05/28/2022 4:44 AM Age: 71 years old Clinical indication: Shortness of breath; Patient HX: C/O SOB TECHNIQUE: Imaging protocol: Radiologic exam of the chest. Views: 1 view. COMPARISON: MR MRCP [id number] 03/27/2020 11:45 AM FINDINGS: Lungs: The lung parenchyma is clear. Pleural spaces: No pneumothorax. No pleural effusion. Heart/Mediastinum: The cardiomediastinal silhouette is within normal limits. Bones/joints: Unremarkable. XR/XR chest 1V portable [id number] IMPRESSION: No acute cardiopulmonary abnormality.
--- NOTE | 2022-05-28 04:42 | W.ED.SOB ---
HPI - SOB/Dyspnea General: Chief Complaint: Shortness of Breath/Dyspnea Stated Complaint: SOB Source: patient Mode of arrival: ambulatory Limitations: no limitations History of Present Illness: HPI Narrative: 71-year-old male states that he was asleep when he had a dream about being short of breath he states he woke up feeling anxious and short of breath. He states that anxiety attack before and this feels similar he states he feels like he just cannot get enough air he denies any chest pain denies any vomiting or diarrhea. Denies cough Associated symptoms: Deny abdominal pain, chest pain, fever(s), nausea or vomiting Review of Systems Const: Denies: fever(s), chills, body aches or change in appetite Eyes: Denies: blurry vision or eye discomfort ENMT: Denies: throat pain or dental pain Card: Denies: chest pain Resp: Reports: dyspnea GI: Denies: abdominal pain, nausea, vomiting or diarrhea : Denies: dysuria Musc: Denies: neck pain or back pain Skin/Breast: Denies: rash Neuro: Denies: headache(s) Psych: Reports: anxiety Richie/Lymph: Denies: easy bruising All/Imm: Denies: urticaria PFSH ED PFSH: Medical History Cholelithiasis Hepatic steatosis Family History Denies family history of Anesthesia complication Bleeding disorder Social History Smoking and tobacco status: never smoked Physical Exam Const: COMMON NORMALS: no acute distress, patient oriented x3 and healthy appearing HENMT: COMMON NORMALS: normocephalic and atraumatic HEAD & SCALP: normocephalic and atraumatic Eye: COMMON NORMALS: Equal, round and reactive pupils present and EOMs intact bilaterally PUPIL: Yes Equal, round and reactive pupils present Neck/C-Spine: COMMON NORMALS: full ROM and supple Chest: COMMONS NORMALS: normal inspection of the chest and normal palpation of entire chest wall Resp: COMMON NORMALS: normal respiratory effort, No retractions, No use of accessory muscles and clear to auscultation bilaterally AUSCULTATION: clear to auscultation bilaterally Cardio: COMMON NORMALS: regular rate, regular rhythm and No murmurs present (Cardio) RATE: regular rate RHYTHM: regular rhythm GI: COMMON NORMALS: Normal to inspection, nondistended, normoactive bowel sounds present, Soft to palpation, non-tender and no masses PALPATION: Yes Soft to palpation Extremity: COMMON NORMALS: normal to inspection and full ROM Neuro: COMMON NORMALS: patient oriented x3, moves all extremities and no focal motor deficits Psych: COMMON NORMALS: mental status grossly normal, Normal thought process present and cooperative THOUGHT PROCESS: Normal thought process present Skin: COMMON NORMALS: no rashes or lesions noted and no wounds GENERAL SKIN EXAM: no rashes or lesions noted Course Vital Signs: Vital signs: Vital Signs Temperature 97.8 F 05/28/22 04:35 Pulse Rate 60 05/28/22 05:06 Respiratory Rate 22 H 05/28/22 05:06 Blood Pressure 146/72 05/28/22 05:06 Pulse Oximetry 97 05/28/22 05:06 Oxygen Delivery Me thod 05/28/22 05:06 MDM - SOB/Dyspnea Medical Decision Making Patient presents here with likely anxiety from waking up from a dream causing him his shortness of breath he feels much better after Ativan blood work EKG are normal he has no signs pneumonia he is stable for discharge he is to follow-up with PCP and return if worsening. Lab Data 05/28/22 04:58 05/28/22 04:58 Labs/Radiology: Laboratory Results WBC 7.1 10^3/uL (4.0-10.0) 05/28/22 04:58 RBC 4.81 10^6/uL (4.1-5.3) 05/28/22 04:58 Hgb 15.2 g/dL (11.7-16.6) 05/28/22 04:58 Hct 45.6 % (42.0-52.0) 05/28/22 04:58 MCV 94.8 fl (80-94) H 05/28/22 04:58 MCH 31.6 pg (28.0-34.0) 05/28/22 04:58 MCHC 33.3 g/dL (30.0-36.0) 05/28/22 04:58 RDW 12.8 % (12.1-15.1) 05/28/22 04:58 Plt Count 227 10^3/cmm (130-400) 05/28/22 04:58 MPV 9.3 fL (7.4-10.4) 05/28/22 04:58 Neut % (Auto) 46.5 % 05/28/22 04:58 Lymph % (Auto) 35.2 % 05/28/22 04:58 [place] % (Auto) 11.9 % 05/28/22 04:58 Eos % (Auto) 5.0 % 05/28/22 04:58 Baso % (Auto) 0.8 % 05/28/22 04:58 Neut # (Auto) 3.29 10^3/uL (1.8-7.7) 05/28/22 04:58 Lymph # (Auto) 2.5 10^3/uL (0.8-4.8) 05/28/22 04:58 [place] # (Auto) 0.8 10^3/uL (0.2-0.9) 05/28/22 04:58 Eos # (Auto) 0.4 10^3/uL (0.0-0.8) 05/28/22 04:58 Baso # (Auto) 0.1 10^3/uL (0.0-0.1) 05/28/22 04:58 Nucleated RBC % (auto) 0 % 05/28/22 04:58 Nucleated RBCs # 0.0 /100WBC 05/28/22 04:58 Sodium 138 mmol/L (136-145) 05/28/22 04:58 Potassium 4.4 mmol/L (3.5-5.1) 05/28/22 04:58 Chloride 103 mmol/L (98-107) 05/28/22 04:58 Carbon Dioxide 27 mmol/L (22-29) 05/28/22 04:58 Anion Gap 12.4 (5-19) 05/28/22 04:58 BUN 23 mg/dL (8-23) 05/28/22 04:58 Creatinine 1.0 mg/dL (0.7-1.2) 05/28/22 04:58 GFR Calculation 74.1 mL/min (90-130) L 05/28/22 04:58 Glucose 141 mg/dL (65-115) H 05/28/22 04:58 Calculated Osmolality 292 mOsm/kg (285-295) 05/28/22 04:58 Calcium 9.3 mg/dL (8.5-10.5) 05/28/22 04:58 Total Bilirubin 0.3 mg/dL (0.15-1.2) 05/28/22 04:58 AST 19 U/L (0-40) 05/28/22 04:58 ALT 35 U/L (0-41) 05/28/22 04:58 Alkaline Phosphatase 70 U/L (40-130) 05/28/22 04:58 NT-Pro-B Natriuret Pep 32 pg/mL (0-125) 05/28/22 04:58 Total Protein 7.3 g/dL (6.6-8.7) 05/28/22 04:58 Albumin 4.5 g/dL (3.5-5.2) 05/28/22 04:58 Globulin 2.8 g/dL (1.3-4.6) 05/28/22 04:58 EKG Data EKG 1: I personally reviewed and interpreted this EKG as follows: EKG Interpretation Date: 05/28/22 EKG interpretation time: 04:47 Interpretation: nsr hr [address] or t wave abnormalities qrs 124 qtc 407 Discharge Plan Discharge Patient Disposition: Home Clinical Impression: Dyspnea, Anxiety Condition: Stable Prescriptions: No Action naproxen 500 mg tablet 500 mg PO BID Qty: 28 0RF Rx Instructions: x two weeks for neck inflammation cyclobenzaprine 10 mg tablet 10 mg PO .qpm PRN (Reason: muscle spasm) Qty: 20 0RF meloxicam 15 mg tablet 15 mg PO DAILY omeprazole 40 mg capsule,delayed release(DR/EC) PO fluticasone propionate 50 mcg/actuation spray,suspension 1 spray intranasal DAILY Rx Instructions: administer into each nostril potassium citrate 10 mEq (1,080 mg) tablet extended release 2,160 mg PO BID Qty: 60 3RF atorvastatin 10 mg tablet See Rx Instructions .ROUTE .COMPLEX Qty: 90 3RF Dose Instruction: TAKE 1 TABLET BY MOUTH EVERY DAY Rx Instructions: TAKE 1 TABLET BY MOUTH EVERY DAY diphenhydramine HCl 50 mg Capsule 50 mg PO QPM PRN (Reason: Sleep) clonazepam 1 mg tablet 1 mg PO DAILY tamsulosin 0.4 mg capsule 0.4 mg PO DAILY lisinopril 10 mg tablet 10 mg PO DAILY Discharge Orders: Discharge ED (Routine); Ordered 05/28/22 Ordered By: Aamir Chou Referrals: Amando Harry DO [Primary Care Provider] - 1-3 days Discharge Diet: Advance as tolerated Discharge Activity: Resume usual activity Patient Instructions: Dyspnea (ED), Anxiety (ED) Coding Level of Care Code ED [employer] for Chg Fwd Exam Comprehensive
--- NOTE | 2022-05-28 04:47 | ECG_ITS ---
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 Measurements Intervals [place] Rate: 64 P: 62 KS: 149 QRS: 34 QRSD: 124 T: 55 QT: 397 QTc: 412 Interpretive Statements SINUS RHYTHM MODERATE INTRAVENTRICULAR CONDUCTION DELAY [110+ ms QRS DURATION] No previous ECG available for comparison Electronically Signed On 05-28-2022 16:58:04 MEDIA ACCOUNT EXECUTIVE by Merry Jacobo M.D. [email or web address]
[2022-05-28] MEDS: LORazepam 1 mg Tablet PO (04:53)
[2022-05-28 05:06] VITALS: BP 146/72; PULSE 60; RESP 22; O2SAT 97
[2022-05-28 05:07] LABS: Basophils # 0.1 10^3/uL (0.0-0.1); Basophils % 0.8 %; Eosinophils # 0.4 10^3/uL (0.0-0.8); Hematocrit 45.6 % (42.0-52.0); Hemoglobin 15.2 g/dL (11.7-16.6); Lymphocytes # 2.5 10^3/uL (0.8-4.8); Lymphocytes % 35.2 %; Mean Corpuscular HGB Conc 33.3 g/dL (30.0-36.0); Mean Corpuscular Hemoglobin 31.6 pg (28.0-34.0); Mean Corpuscular Volume 94.8 fl (80-94); Mean Platelet Volume 9.3 fL (7.4-10.4); Monocytes # 0.8 10^3/uL (0.2-0.9); Monocytes % 11.9 %; Neutrophils # 3.29 10^3/uL (1.8-7.7); Neutrophils % 46.5 %; Nucleated Red Blood Cells % 0 %; Platelet Count 227 10^3/cmm (130-400); Red Blood Count 4.81 10^6/uL (4.1-5.3); Red Cell Distribution Width 12.8 % (12.1-15.1); White Blood Count 7.1 10^3/uL (4.0-10.0)
[2022-05-28 05:39] LABS: Alanine Aminotransferase 35 U/L (0-41); Albumin Level 4.5 g/dL (3.5-5.2); Alkaline Phosphatase 70 U/L (40-130); Anion Gap 12.4 (5-19); Aspartate Amino Transferase 19 U/L (0-40); Blood Urea Nitrogen 23 mg/dL (8-23); Calcium 9.3 mg/dL (8.5-10.5); Carbon Dioxide 27 mmol/L (22-29); Chloride 103 mmol/L (98-107); Globulin 2.8 g/dL (1.3-4.6); Glomerular Filtration Rate 74.1 mL/min (90-130); Glucose 141 mg/dL (65-115); NT Pro B Type Natriuretic Pept 32 pg/mL (0-125); Osmolality Calculated 292 mOsm/kg (285-295); Potassium 4.4 mmol/L (3.5-5.1); Sodium 138 mmol/L (136-145); Total Bilirubin 0.3 mg/dL (0.15-1.2); Total Protein 7.3 g/dL (6.6-8.7)
== END 2022-05-28 05:55 | disposition home or self-care (01) ==
PROVIDERS: Emergency Provider Emergency Medicine; PCP Family Medicine
DX: R06.00 Dyspnea, unspecified (principal); F41.9 Anxiety disorder, unspecified
CPT/HCPCS: 71045; 80053; 83880; 85025; 93005; 99285

== ENCOUNTER 2022-06-13 13:39 | Emergency (ER) | payer MEDICARE, OTHER, SELFPAY ==
[2022-06-13] VITALS (31 sets, daily range): BP systolic 117–159; BP diastolic 71–90; PULSE 68–84; RESP 14–22; TEMP 36.7; O2SAT 91–100
--- NOTE | 2022-06-13 13:51 | XRR_ITS ---
PROCEDURE INFORMATION: Exam: XR Right Hand Exam date and time: 06/13/2022 2:15 PM Age: 71 years old Clinical indication: Injury or trauma; Other: Saw vs. Finger; Work related; Amputation, traumatic; Right index finger TECHNIQUE: Imaging protocol: Radiologic exam of the Right hand. Views: 3 or more views. COMPARISON: No relevant prior studies available. FINDINGS: Bones/joints: Traumatic amputation of the 1st digit at the level of the mid aspect of the middle phalanx. Pieces of soft tissue extend distal to the region of amputation and contain free fracture fragments. There are nondisplaced linear fractures through the remainder of the base of the 2nd digit middle phalanx. Soft tissues: See Bones/joints finding. XR/XR hand RT min 3V* [id number] IMPRESSION: Traumatic amputation of the 1st digit at the level of the mid aspect of the middle as described above. There are nondisplaced linear fractures through the remainder of the base of the 2nd digit middle phalanx.
--- NOTE | 2022-06-13 14:00 | W.ED.TRAUMA ---
HPI - Trauma General: Chief Complaint: Trauma Stated Complaint: finger cut off of right hand Time Seen by Provider: 06/13/22 13:56 History of Present Illness: 71-year-old male who presents after getting his right index finger caught in an edger saw. This happened just prior to arrival. He has an amputation of the tip of his right index finger. There is an abrasion to the ulnar aspect of the third digit as well. Review of Systems General: Reports: 10 or more systems reviewed and unremarkable except in HPI and below PFSH ED PFSH: Medical History Cholelithiasis Hepatic steatosis Family History Denies family history of Anesthesia complication Bleeding disorder Social History Smoking and tobacco status: never smoked Physical Exam Const: COMMON NORMALS: no acute distress and average body habitus Neck/C-Spine: OTHER: Trachea midline Resp: OTHER: No respiratory distress Cardio: OTHER: Normal rate Extremity: OTHER: Amputation of the distal portion of the right index finger at the proximal portion of the mid phalanx there is remaining skin from the distal finger but the bone and remaining tendons are otherwise fully amputated. The wound is clean. He is able to flex at the MCP joint. The skin is pink and warm that is remaining. Has a small abrasion on the radial aspect of the pad of the distal phalanx region of the third digit. Normal flexion of that digit. Distal sensation is intact. Procedures Laceration Laceration 1: Site: hand (right index finger) Side (If applicable): right Size (cm): 2.5 Description: flap, contaminated and other (amputation of fingertip) Depth: involves muscle layer and involves tendon (amputation with open fracture) Local Anesthetic: lidocaine 1% (8 ml - digital block) Pre-repair: wound explored, irrigated extensively, extensive debridement and wound margins revised (flap to close tip of open fracture fingertip created) Skin layer closed with: nylon Size (cm): 5-0 Number of sutures: 8 Technique: simple, interrupted Course ED course: X-rays have been obtained and do show a fracture through the proximal end of the mid phalanx with remaining small portion of the middle phalanx proximal and intact. Patient's been given IV morphine for pain as well as Ancef 2 g IV. Digital block was performed and the laceration was revised and repaired. Patient has been placed into a Tubegauz dressing. We will have the patient follow-up with orthopedic surgery. We will place the patient on Keflex 20 mg 3 times daily x10 days. I will give him hydrocodone 10 to take 1 every 4-6 hours as needed for pain. He needs to ice and elevate it. Discussed with orthopedic surgery. We will have the patient follow-up this week. Wound care instructions have been discharged home with the patient. Return precautions have been discussed Consultations: Consultation #1: Discussed with Dr. Aranda who recommends revision of that skin flap and tacking it down. He will see the patient in follow-up and revise if needed. Vital Signs: Vital signs: Vital Signs Temperature 98.1 F 06/13/22 13:41 Pulse Rate 84 06/13/22 13:41 Respiratory Rate 20 H 06/13/22 14:09 Blood Pressure 159/85 06/13/22 13:41 Pulse Oximetry 98 06/13/22 13:41 Oxygen Delivery Me thod 06/13/22 13:41 MDM - Trauma Medical Decision Making Patient has a near complete amputation of the distal portion of the right index finger at the proximal end of the mid phalanx of the index finger. There is remaining skin that can be revised and a flap created to cover it. Lab Data Radiology Impressions Hand X-Ray 06/13/22 13:51 IMPRESSION: Traumatic amputation of the 1st digit at the level of the mid aspect of the middle as described above. There are nondisplaced linear fractures through the remainder of the base of the 2nd digit middle phalanx. Discharge Plan Discharge Patient Disposition: Home Clinical Impression: Traumatic amputation of fingertip Condition: Stable Prescriptions: New hydrocodone-acetaminophen 10-325 mg tablet 1 tab PO Q6H PRN (Reason: pain) Qty: 20 0RF cephalexin 500 mg capsule 500 mg PO Q8H 10 Days Qty: 30 0RF No Action naproxen 500 mg tablet 500 mg PO BID Qty: 28 0RF Rx Instructions: x two weeks for neck inflammation cyclobenzaprine 10 mg tablet 10 mg PO .qpm PRN (Reason: muscle spasm) Qty: 20 0RF meloxicam 15 mg tablet 15 mg PO DAILY omeprazole 40 mg capsule,delayed release(DR/EC) PO fluticasone propionate 50 mcg/actuation spray,suspension 1 spray intranasal DAILY Rx Instructions: administer into each nostril potassium citrate 10 mEq (1,080 mg) tablet extended release 2,160 mg PO BID Qty: 60 3RF atorvastatin 10 mg tablet See Rx Instructions .ROUTE .COMPLEX Qty: 90 3RF Dose Instruction: TAKE 1 TABLET BY MOUTH EVERY DAY Rx Instructions: TAKE 1 TABLET BY MOUTH EVERY DAY clonazepam 1 mg tablet 1 mg PO BID Qty: 30 5RF diphenhydramine HCl 50 mg Capsule 50 mg PO QPM PRN (Reason: Sleep) tamsulosin 0.4 mg capsule 0.4 mg PO DAILY lisinopril 10 mg tablet 10 mg PO DAILY Discharge Orders: Discharge ED (Routine); Ordered 06/13/22 Ordered By: Mague Villegas Referrals: Amando Harry DO [Primary Care Provider] - Flaca Orta MD [Physician] - (follow up in 3-4 days for wound check) Discharge Diet: Advance as tolerated Discharge Activity: Limit activity as instructed Patient Instructions: Opioid Safety, Pain Management, Laceration (ED) Activity Restrictions/Additional Instructions: Keep the dressing in place until you are seen in follow-up. Ice and elevate the hand. Take the antibiotics as prescribed. You can take the hydrocodone every 4-6 hours as needed for pain. Return if you are having increased pain, fever, red streaks, the blood soaked through the dressing or drainage of pus. Follow-up this week with the orthopedic surgeon to have the wound rechecked. Coding Level of Care Code ED Software Licensing Analyst for Nataliia Rodriguez Exam Problem Focused
[2022-06-13] MEDS: ondansetron 2 mg/ML SDV 2 mL 4 MG IVP (14:09)
[2022-06-13] MEDS: morphine 4 mg/mL SDV 1 mL IVP ×2 (14:09→16:52)
[2022-06-13] MEDS: ceFAZolin 2,000 MG in sodium chloride 0.9% (plus) 50 ML 100 MG IV (14:13)
[2022-06-13] MEDS: diphenhydrAMINE 50 mg/mL SDV 1mL 25 MG IVP (15:12)
[2022-06-13] MEDS: lidocaine 1% INJ 10 mL (per mL) INTRADERMA (15:13)
[2022-06-13] MEDS: tetanus-diphtheria tox (adult) 0.5 mL SDV IM (16:42)
== END 2022-06-13 17:28 | disposition home or self-care (01) ==
PROVIDERS: Emergency Provider Emergency Medicine; PCP Family Medicine
DX: S68.120A Partial traumatic metacarpophalangeal amputation of right index finger, initial encounter (principal); S60.412A Abrasion of right middle finger, initial encounter; W27.0XXA Contact with workbench tool, initial encounter; Z23 Encounter for immunization
CPT/HCPCS: 12041; 73130; 90471; 90714; 96374; 96375; 99284; A6446; J0690; J1200; J2270; J2405

== ENCOUNTER → 2022-06-17 13:48 | Outpatient (BNVA) | payer MEDICARE, OTHER, SELFPAY | PROVIDERS: PCP Family Medicine; Visit Provider Specialist | DX: S68.110A Complete traumatic metacarpophalangeal amputation of right index finger, initial encounter (principal); W30.89XA Contact with other specified agricultural machinery, initial encounter | CPT/HCPCS: 73130; 99204 ==

== ENCOUNTER 2022-06-27 16:32 | Emergency (ER) | payer MEDICARE, OTHER, SELFPAY ==
[2022-06-27 16:36] VITALS: BP 165/82; PULSE 85; RESP 16; TEMP 36.4; O2SAT 96; BMI 31.5
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
== END 2022-06-27 16:57 | disposition home or self-care (01) ==
PROVIDERS: Emergency Provider Family Medicine; PCP Specialist
DX: Z48.01 Encounter for change or removal of surgical wound dressing (principal)
CPT/HCPCS: 99282

== ENCOUNTER → 2022-06-29 07:46 | Outpatient (BNVA) | payer MEDICARE, OTHER, SELFPAY | PROVIDERS: PCP Specialist; Visit Provider Nurse Practitioner Family | DX: S68.110A Complete traumatic metacarpophalangeal amputation of right index finger, initial encounter (principal); X58.XXXA Exposure to other specified factors, initial encounter | CPT/HCPCS: 99213 ==

== ENCOUNTER → 2022-07-05 08:57 | Outpatient (BNVA) | payer MEDICARE, OTHER, SELFPAY | PROVIDERS: PCP Specialist; Visit Provider Specialist | DX: S68.110A Complete traumatic metacarpophalangeal amputation of right index finger, initial encounter (principal); X58.XXXA Exposure to other specified factors, initial encounter | CPT/HCPCS: 99213 ==

== ENCOUNTER → 2023-01-12 14:03 | Outpatient (BNVA) | payer MEDICARE, OTHER, SELFPAY | PROVIDERS: PCP Family Medicine; Visit Provider Dermatology | DX: D48.5 Neoplasm of uncertain behavior of skin (principal); L82.0 Inflamed seborrheic keratosis; L57.0 Actinic keratosis; L73.8 Other specified follicular disorders; L81.4 Other melanin hyperpigmentation; L21.8 Other seborrheic dermatitis | CPT/HCPCS: 11102; 11103; 17000; 17003; 17110; 99214 ==

== ENCOUNTER → 2023-01-13 09:43 | Outpatient (BNVA) | payer MEDICARE, OTHER, SELFPAY | PROVIDERS: PCP Family Medicine; Visit Provider Family Medicine | DX: R35.0 Frequency of micturition (principal); I10 Essential (primary) hypertension; E78.5 Hyperlipidemia, unspecified; G47.00 Insomnia, unspecified; K76.0 Fatty (change of) liver, not elsewhere classified | CPT/HCPCS: 80053; 80061; 84153 ==

== ENCOUNTER → 2023-01-18 11:03 | Outpatient (BNVA) | payer MEDICARE, OTHER, SELFPAY | PROVIDERS: PCP Family Medicine; Visit Provider Family Medicine | DX: R73.9 Hyperglycemia, unspecified (principal) | CPT/HCPCS: 83036 ==

== ENCOUNTER → 2023-04-25 08:44 | Outpatient (BNVA) | payer MEDICARE, OTHER, SELFPAY | PROVIDERS: PCP Family Medicine; Visit Provider Family Medicine | DX: R73.9 Hyperglycemia, unspecified (principal); E11.9 Type 2 diabetes mellitus without complications; E78.5 Hyperlipidemia, unspecified; E10.9 Type 1 diabetes mellitus without complications | CPT/HCPCS: 80053; 80061; 83036 ==

== ENCOUNTER 2023-06-22 10:02 | Outpatient (CLI) | payer MEDICARE, OTHER, SELFPAY ==
--- NOTE | 2023-06-22 10:07 | FL_ITS ---
WS: [id number] Barium swallow and esophagram, 06/22/2023 Clinical Data: DYSPHAGIA,PHARYNGOESOPHAGELA PHASE Comparison: None. Fluoroscopy time: 1min [id number] # of spot films: 22 Findings: The patient swallowed the thick and thin barium, and it flowed through the hypopharynx without hesita tion. No stricture, mass, polyp or erosion was seen. There is minimal osteoarthritis from the vertebr al bodies C5-C7 impinging on to the hypopharynx. The barium entered the esophagus and there was normal motility throughout. No hiatal hernia, reflux, stricture, polyp, mass, erosion or ulcer was noted. 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
== END 2023-06-22 10:03 | disposition home or self-care (01) ==
LOC: RAD 10:02
PROVIDERS: PCP Family Medicine; Visit Provider Otolaryngology
DX: J39.2 Other diseases of pharynx (principal); M47.812 Spondylosis without myelopathy or radiculopathy, cervical region; R13.14 Dysphagia, pharyngoesophageal phase
CPT/HCPCS: 74220

== ENCOUNTER 2023-07-01 09:13 | Outpatient (CLI) | payer MEDICARE, OTHER, SELFPAY ==
--- NOTE | 2023-07-01 09:16 | FL_ITS ---
WS: [id number] FL barium swallow modifd [id number] REASON FOR EXAM: Pharyngoesoph. dysphagia FLUOROSCOPY TIME: 1min [id number] # OF SPOT FILMS: None FINDINGS: Examination was supervised by the speech therapy department. The patient was examined in the sitting upright lateral position. The swallowing of varying consistencies of barium was monitored fluoroscopically and video recorded. A detailed report of the swallowing will be rendered by the speech therapy department. IMPRESSION: Modified barium swallow as above.
== END 2023-07-01 09:14 | disposition home or self-care (01) ==
LOC: RAD 09:14
PROVIDERS: PCP Family Medicine; Visit Provider Otolaryngology
DX: R13.14 Dysphagia, pharyngoesophageal phase (principal)
CPT/HCPCS: 74230; 92611

== ENCOUNTER → 2023-07-15 10:22 | Outpatient (BNVA) | payer MEDICARE, OTHER, SELFPAY | PROVIDERS: PCP Family Medicine; Visit Provider Nurse Practitioner Family | DX: L21.8 Other seborrheic dermatitis (principal); D22.5 Melanocytic nevi of trunk; L81.4 Other melanin hyperpigmentation; L82.1 Other seborrheic keratosis; L57.8 Other skin changes due to chronic exposure to nonionizing radiation | CPT/HCPCS: 17000; 99214 ==

== ENCOUNTER → 2023-10-25 09:50 | Outpatient (BNVA) | payer MEDICARE, OTHER, SELFPAY | PROVIDERS: PCP Family Medicine; Visit Provider Family Medicine | DX: I10 Essential (primary) hypertension (principal); E78.5 Hyperlipidemia, unspecified; E11.9 Type 2 diabetes mellitus without complications; R73.9 Hyperglycemia, unspecified | CPT/HCPCS: 80053; 80061; 83036 ==

== ENCOUNTER → 2024-01-16 09:15 | Outpatient (BNVA) | payer MEDICARE, OTHER, SELFPAY | PROVIDERS: PCP Family Medicine; Visit Provider Nurse Practitioner Family | DX: L21.8 Other seborrheic dermatitis (principal); L73.8 Other specified follicular disorders; D22.5 Melanocytic nevi of trunk; L81.4 Other melanin hyperpigmentation; L82.1 Other seborrheic keratosis; L57.8 Other skin changes due to chronic exposure to nonionizing radiation; L57.0 Actinic keratosis; L82.0 Inflamed seborrheic keratosis | CPT/HCPCS: 17000; 17110; 99214 ==

== ENCOUNTER → 2024-07-19 07:59 | Outpatient (BNVA) | payer MEDICARE, OTHER, SELFPAY | PROVIDERS: PCP Family Medicine; Visit Provider Nurse Practitioner Family | DX: L21.8 Other seborrheic dermatitis (principal); D22.5 Melanocytic nevi of trunk; L81.4 Other melanin hyperpigmentation; L57.8 Other skin changes due to chronic exposure to nonionizing radiation; L82.1 Other seborrheic keratosis; L82.0 Inflamed seborrheic keratosis; L29.89 Other pruritus; R20.8 Other disturbances of skin sensation; Z78.9 Other specified health status; L53.8 Other specified erythematous conditions; R58 Hemorrhage, not elsewhere classified; L57.0 Actinic keratosis | CPT/HCPCS: 17000; 17110; 99214 ==

== ENCOUNTER 2024-12-01 01:40 | Emergency (ER) | payer MEDICARE, OTHER, SELFPAY ==
[2024-12-01 01:52] VITALS: BP 149/82; PULSE 74; RESP 18; TEMP 36.8; O2SAT 99; BMI 28.5
--- NOTE | 2024-12-01 02:11 | XRR_ITS ---
PROCEDURE INFORMATION: Exam: XR Chest Exam date and time: 12/01/2024 2:21 AM Age: 74 years old Clinical indication: Shortness of breath; C/O SOB TECHNIQUE: Imaging protocol: Radiologic exam of the chest. Views: 1 view. COMPARISON: CR XR chest 1V portable [id number] 05/28/2022 4:44 AM FINDINGS: Lungs: Unremarkable. No consolidation. Pleural spaces: Unremarkable. No pleural effusion. No pneumothorax. Heart/Mediastinum: Unremarkable. No cardiomegaly. Bones/joints: Unremarkable. XR/XR chest 1V portable [id number] IMPRESSION: No acute findings.
--- NOTE | 2024-12-01 02:11 | ECG_ITS ---
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 Measurements Intervals [place] Rate: 68 P: 48 CA: 154 QRS: -26 QRSD: 130 T: 43 QT: 399 QTc: 425 Interpretive Statements SINUS RHYTHM BORDERLINE LEFT AXIS DEVIATION [QRS AXIS < -20] MODERATE INTRAVENTRICULAR CONDUCTION DELAY [110+ ms QRS DURATION] Compared to ECG 05/28/2022 04:47:17 No significant changes Electronically Signed On 12-04-2024 10:14:27 CDT by Ernestine Villela M.D. [email or web address] [id number]
[2024-12-01 02:35] VITALS: BP 112/63; PULSE 63; O2SAT 95
--- NOTE | 2024-12-01 03:12 | W.ED.ANXIETY ---
HPI - Anxiety General: Chief Complaint: Anxiety Stated Complaint: SOB feels like suffocating Time Seen by Provider: 12/01/24 02:50 History of Present Illness: 74-year-old male patient who has a history of anxiety. He woke up from a dream this morning complaining of shortness of breath. He felt like he was suffocating and could not get his breath. He took an extra Klonopin which did not seem to help for the first 30 minutes. He believes it is probably helping now. His symptoms are resolved. He never had chest pain. No cough. No fever.3 No leg swelling. He was well when he went to bed. Related Data Home Medications ?Medication ?Instructions ?Recorded ?Confirmed fluticasone propionate 50 1 spray intranasal DAILY 02/25/22 10/25/23 mcg/actuation nasal spray,suspension Previous Rx's ?Medication ?Instructions ?Recorded potassium citrate 10 mEq (1,080 See Rx Instructions .Route 10/25/23 mg) tablet,extended release .COMPLEX #180 tabs lisinopril 10 mg tablet See Rx Instructions .Route 01/16/24 .COMPLEX #270 tabs atorvastatin 10 mg tablet See Rx Instructions .Route 06/19/24 .COMPLEX #90 tabs clonazepam 1 mg tablet 1 mg PO BID #60 tabs 06/19/24 meloxicam 15 mg tablet See Rx Instructions .Route 06/19/24 .COMPLEX #90 tabs tamsulosin 0.4 mg capsule See Rx Instructions .Route 06/19/24 .COMPLEX #90 caps Allergies Allergy/AdvReac Type Severity Reaction Status Date / Time No Known Drug Allergies Allergy none Verified 09/06/22 08:47 [facility] ED PFSH: Medical History Diabetes mellitus type 2, controlled Insomnia Hyperlipidemia Hypertension Cholelithiasis Hepatic steatosis Surgical History History of carpal tunnel repair History of hernia repair History of back surgery History of laparoscopic cholecystectomy (~03/2020) History of inguinal hernia repair (~03/2020) Family History Denies family history of Anesthesia complication Bleeding disorder Social History Smoking and tobacco/nicotine status: former use of tobacco/nicotine Physical Exam Const: COMMON NORMALS: no acute distress GENERAL APPEARANCE: cooperative; not ill appearing and not frail appearing HENMT: COMMON NORMALS: normocephalic, atraumatic and Normal external nose present HEAD & SCALP: normocephalic and atraumatic FACE & SINUS: normal facial exam and face symmetric NOSE: Normal external nose present Eye: COMMON NORMALS: Equal, round and reactive pupils present and EOMs intact bilaterally PUPIL: Yes Equal, round and reactive pupils present Neck/C-Spine: GENERAL: Yes trachea midline Chest: CHEST: Yes Symmetrical chest wall rise Resp: COMMON NORMALS: normal respiratory effort, No retractions, No use of accessory muscles and clear to auscultation bilaterally AUSCULTATION: clear to auscultation bilaterally Cardio: COMMON NORMALS: regular rate and regular rhythm RATE: regular rate RHYTHM: regular rhythm GI: COMMON NORMALS: Normal to inspection, nondistended, normoactive bowel sounds present Extremity: COMMON NORMALS: no pedal edema Neuro: KISHORE COMA SCALE: document GCS findings [place] coma scale eye opening: Spontaneous [place] coma scale verbal response: Orientated [place] coma scale motor response: Obey commands Kishore coma scale total score: 15 SENSORY EXAM: Yes extremities (intact) Psych: COMMON NORMALS: speech normal SPEECH: Yes normal speech Skin: COMMON NORMALS: no rashes or lesions noted GENERAL SKIN EXAM: no rashes or lesions noted Course Vital Signs: Vital signs: Vital Signs Temperature 98.2 F 12/01/24 01:52 Pulse Rate 58 L 12/01/24 04:06 Respiratory Rate 18 12/01/24 01:52 Blood Pressure 112/60 12/01/24 04:06 Pulse Oximetry 97 12/01/24 04:06 MDM - Anxiety Medical Decision Making The patient's symptoms are resolved. His EKG is nonacute. Chest x-ray is nonacute. He will be discharged to home. To return for any return of symptoms. All radiology interpretation(s) finalized by discharge Discharge Plan Discharge Patient Disposition: Home Clinical Impression: Acute anxiety Condition: Stable Prescriptions: No Action potassium citrate 10 mEq (1,080 mg) tablet extended release See Rx Instructions .ROUTE .COMPLEX Qty: 180 3RF Dose Instruction: TAKE ONE TABLET BY MOUTH TWICE DAILY Rx Instructions: TAKE ONE TABLET BY MOUTH TWICE DAILY fluticasone propionate 50 mcg/actuation spray,suspension 1 spray intranasal DAILY Rx Instructions: administer into each nostril lisinopril 10 mg tablet See Rx Instructions .ROUTE .COMPLEX Qty: 270 3RF Dose Instruction: TAKE ONE TABLET BY MOUTH DAILY FOR BLOOD PRESSURE Rx Instructions: TAKE ONE TABLET BY MOUTH DAILY FOR BLOOD PRESSURE clonazepam 1 mg tablet 1 mg PO BID Qty: 60 5RF atorvastatin 10 mg tablet See Rx Instructions .ROUTE .COMPLEX Qty: 90 3RF Dose Instruction: TAKE 1 TABLET BY MOUTH EVERY DAY Rx Instructions: TAKE 1 TABLET BY MOUTH EVERY DAY meloxicam 15 mg tablet See Rx Instructions .ROUTE .COMPLEX Qty: 90 3RF Dose Instruction: TAKE ONE TABLET BY MOUTH ONCE a DAY Rx Instructions: TAKE ONE TABLET BY MOUTH ONCE a DAY tamsulosin 0.4 mg capsule See Rx Instructions .ROUTE .COMPLEX Qty: 90 3RF Dose Instruction: TAKE ONE CAPSULE BY MOUTH EVERY DAY * take 30 minutes AFTER same meal each DAY * Rx Instructions: TAKE ONE CAPSULE BY MOUTH EVERY DAY * take 30 minutes AFTER same meal each DAY * Discharge Orders: Discharge ED (Routine); Ordered 12/01/24 Ordered By: Darrius Stewart Referrals: Tuan Overton MD [Primary Care Provider, Family Practice] Patient Instructions: Dyspnea (ED), Anxiety (ED), Opioid Safety, Pain Management, Patient Portal & Susan Instructions Activity Restrictions/Additional Instructions: Return for development of chest discomfort, worsening shortness of breath, any other concerning symptoms. Print Language: Maltese Coding Level of Care Code ED Screening Technician for Nataliia Rodriguez
[2024-12-01] MEDS: LORazepam 1 MG/0.5 ML injection IVP (03:55)
[2024-12-01 04:06] VITALS: BP 112/60; PULSE 58; O2SAT 97
== END 2024-12-01 04:09 | disposition home or self-care (01) ==
PROVIDERS: Emergency Provider Emergency Medicine; PCP Family Medicine
DX: F41.8 Other specified anxiety disorders (principal); E78.5 Hyperlipidemia, unspecified; I10 Essential (primary) hypertension; E11.9 Type 2 diabetes mellitus without complications
CPT/HCPCS: 71045; 93005; 96374; 99285; J2060

== ENCOUNTER → 2025-01-25 08:06 | Outpatient (BNVA) | payer MEDICARE, OTHER, SELFPAY | PROVIDERS: PCP Family Medicine; Visit Provider Nurse Practitioner Family | DX: L21.8 Other seborrheic dermatitis (principal); L81.4 Other melanin hyperpigmentation; L57.8 Other skin changes due to chronic exposure to nonionizing radiation; L82.1 Other seborrheic keratosis; D22.5 Melanocytic nevi of trunk | CPT/HCPCS: 17004; 99214 ==

== ENCOUNTER → 2025-02-01 09:49 | Outpatient (BNVA) | payer MEDICARE, OTHER, SELFPAY | PROVIDERS: PCP Family Medicine; Visit Provider Family Medicine | DX: E11.9 Type 2 diabetes mellitus without complications (principal); E78.5 Hyperlipidemia, unspecified; N40.0 Benign prostatic hyperplasia without lower urinary tract symptoms; Z12.5 Encounter for screening for malignant neoplasm of prostate | CPT/HCPCS: 80053; 80061; 83036; 84153; 84439; 84443; 85025 ==